=== PATIENT | female | born 1945 | race American Indian/Alaskan Native ===

== ENCOUNTER 2018-01-20 13:37 | Emergency (ER) | payer MEDICARE, OTHER ==
[2018-01-20 13:38] VITALS: BMI 41.1
[2018-01-20 14:16] VITALS: RESP 18; TEMP 98.3; O2SAT 98
[2018-01-20 16:02] VITALS: BP 148/79; PULSE 69
--- NOTE | 2018-01-20 16:05 | ED PDOC ---
Arrival/HPI - General Chief Complaint: Lower Extremity Problem/Injury Time Seen by Provider: 01/20/18 14:27 Historian: Patient - History of Present Illness Narrative History of Present Illness (Text): 01/20/18 16:01 72yo morbidly obese female with pmhx of hypertension, lymphedema and seizure present to ED for b/l leg pain. Patient notes that she is on antidiuretic and has been experiencing worsening pain on her legs. States she saw her PMD and was reffered to ED to r/o DVT. She otherwise denies erythema, fever, SOB, chest pain, diaphoresis, recent travel, any other complaint. 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) Other/Comment: blurred vision post seizure, now and in the past - Renal Hx Renal Disorder: No - Endocrine/Metabolic Hx Endocrine Disorders: No - Hematological/Oncological Hx Blood Disorders: Yes Hx Cancer: Yes (right breast had radiation@ 10 yrs ago) - Integumentary Hx Dermatological Disorder: No - Musculoskeletal/Rheumatological Hx Falls: Yes (fell in july 2013) Hx Unsteady Gait: Yes (does not use a cane) - Genitourinary/Gynecological Hx Genitourinary Disorders: No - Psychiatric Hx Depression: Yes Hx Emotional Abuse: No Hx Physical Abuse: No Hx Substance Use: No - Surgical History Hx Coronary Stent: Yes Hx Open Heart Surgery: Yes (4 vessels 1991) Other/Comment: right breast lumpectomy about 10 yrs ago, right parietal craniotomy for meningioma - Anesthesia Hx Anesthesia: Yes Hx Anesthesia Reactions: No Hx Malignant Hyperthermia: No - Suicidal Assessment Feels Threatened In Home Enviroment: No Family/Social History - Physician Review Nursing Documentation Reviewed: Yes Family/Social History: Unknown Family HX Smoking Status: Never Smoked Hx Alcohol Use: No Hx Substance Use: No Hx Substance Use Treatment: No Allergies/Home Meds Allergies/Adverse Reactions: Allergies No Known Allergies Allergy (Verified 01/20/18 14:10) Home Medications: Home Meds Medication Instructions Recorded Confirmed Aspirin 81 mg PO DAILY 10/31/13 01/25/15 Carvedilol [Coreg] 25 mg PO DAILY 10/31/13 01/25/15 Levetiracetam [Keppra] 500 mg PO BID 10/31/13 01/25/15 Simvastatin 40 mg PO DAILY 10/31/13 01/25/15 amLODIPine [Norvasc] 5 mg PO DAILY 10/31/13 01/25/15 Clopidogrel [Plavix] 75 mg PO DAILY 01/25/15 01/25/15 Review of Systems - Physician Review All systems were reviewed & negative as marked: Yes - Review of Systems Constitutional: Normal Eyes: Normal ENT: Normal Respiratory: Normal Cardiovascular: Normal Gastrointestinal: Normal Genitourinary Female: Normal Musculoskeletal: Arthralgias (B/L leg pain) Skin: Normal Neurological: Normal Endocrine: Normal Hemo/Lymphatic: Normal Psychiatric: Normal Physical Exam Vital Signs Reviewed: Yes Vital Signs Temp Pulse Resp BP Pulse Ox 01/20/18 14:16 98.3 F 75 18 150/85 98 Temperature: Afebrile Blood Pressure: Normal Pulse: Regular Respiratory Rate: Normal Appearance: Positive for: Well-Appearing, Non-Toxic, Comfortable Pain Distress: None Mental Status: Positive for: Alert and Oriented X 3 - Systems Exam Head: Present: Atraumatic, Normocephalic Pupils: Present: PERRL Extroacular Muscles: Present: EOMI Conjunctiva: Present: Normal Mouth: Present: Moist Mucous Membranes Neck: Present: Normal Range of Motion Respiratory/Chest: Present: Clear to Auscultation, Good Air Exchange. No: Respiratory Distress, Accessory Muscle Use Cardiovascular: Present: Regular Rate and Rhythm, Normal S1, S2. No: Murmurs Abdomen: No: Tenderness, Distention, Peritoneal Signs Back: Present: Normal Inspection Upper Extremity: Present: Normal Inspection. No: Cyanosis, Edema Lower Extremity: Present: Edema (4+ onpitting edema worse on the left), CALF TENDERNESS. No: NORMAL PULSES (Decreased) Neurological: Present: GCS=15, CN II-XII Intact, Speech Normal Skin: Present: Warm, Dry, Normal Color. No: Rashes Psychiatric: Present: Alert, Oriented x 3, Normal Insight, Normal Concentration Medical Decision Making ED Course and Treatment: 01/20/18 16:04 PT in ED for stated history. She was offered analgesic and declined, states she don't need the medication. She specifies that she only came to ED to r/o DVT Preliminary Doppler US - Negative for DVT b/l - RAD Interpretation Radiology Orders: 01/20/18 14:27 DUPLEX LOWER EXTRM VEIN BILAT [US] Stat Disposition/Present on Arrival - Present on Arrival Any Indicators Present on Arrival: No History of DVT/PE: Yes History of Uncontrolled Diabetes: No Urinary Catheter: No History of Decub. Ulcer: No History Surgical Site Infection Following: None - Disposition Have Diagnosis and Disposition been Completed?: Yes Diagnosis: Leg pain Disposition: HOME/ ROUTINE Disposition Time: 16:05 Patient Plan: Discharge Condition: STABLE Discharge Instructions (ExitCare): Muscle and Bone Pain (DC) Additional Instructions: Elevate and use compression stockings Follow up with your Doctor Return to ED for worsening symptoms Referrals: Antwon Price MD [Primary Care Provider] - Follow up with primary
--- NOTE | 2018-01-20 17:50 | US ---
HISTORY: Leg pain and swelling. Evaluate for DVT PHYSICIAN(S): Jakub Gordon MD. TECHNIQUE: Duplex sonography and color-flow Doppler with graded compression were used to evaluate the deep venous systems of both lower extremities. The exam is limited by body habitus and edema. The left tibial veins are not adequately seen. FINDINGS: The visualized deep venous systems of both lower extremities are sonographically normal and compressible. Normal wave forms and augmentation are seen. There is no sonographic evidence for deep venous thrombosis in the visualized segments of both lower extremities. IMPRESSION: No sonographic evidence for deep venous thrombosis in the visualized segments of both lower extremities. Limited study.
== END 2018-01-20 16:10 | disposition home or self-care (01) ==
LOC: ED 13:37
DX: M79.604 Pain in right leg (principal); M79.605 Pain in left leg; I50.9 Heart failure, unspecified; I10 Essential (primary) hypertension; E66.01 Morbid (severe) obesity due to excess calories